=== PATIENT | male | born 1975 | race Caucasian/White ===

== ENCOUNTER → 2020-10-07 | Outpatient (CLI) | payer BC ==
[2020-10-07 09:17] LABS: HEMOGLOBIN 19.6 gm/dl (14.0-17.5); RED BLOOD COUNT 6.58 M/UL (4.20-5.50); WHITE BLOOD COUNT 8.3 K/UL (4.5-11.0)
== END ==
LOC: OPSV 08:00
PROVIDERS: Nurse Practitioner Family
DX: D75.1 Secondary polycythemia (principal); E29.1 Testicular hypofunction
CPT/HCPCS: 36415; 85027; 99195

== ENCOUNTER 2020-11-18 11:24 | Emergency (ER) | payer BC ==
[~2020-11-18] VITALS: Ht 170.2 cm; Wt 93.4 kg
== END 2020-11-18 13:54 | disposition home or self-care (01) ==
LOC: ER1 11:24
DX: Z23 Encounter for immunization (principal); U07.1 COVID-19; E78.5 Hyperlipidemia, unspecified; I10 Essential (primary) hypertension; K21.9 Gastro-esophageal reflux disease without esophagitis; Z79.01 Long term (current) use of anticoagulants; Z88.2 Allergy status to sulfonamides; Z79.899 Other long term (current) drug therapy
CPT/HCPCS: 99283; M0243